=== PATIENT | female | born 1990 | race Caucasian/White ===

== ENCOUNTER → 2017-09-03 | Outpatient (CLI) | payer OTHER ==
[~2017-09-03] MED LIST: GADOBENATE DIMEGLUMINE 0 ML IV ONE
--- NOTE | 2017-09-03 11:02 | Diagnostic Imaging Report ---
ADDENDUM #1 In addition to the findings described in the body and impression of the report, there is also mild volume loss with possible mild encephalomalacia in the left inferior cerebellum beneath the suboccipital craniectomy. Signed by: Dr. Bassam Hennessy M.D. on 09/03/2017 11:32 AM ORIGINAL REPORT Exam: Brain MRI without IV contrast History: Dizziness, paresthesias Comparison studies: None Technique: Sagittal and axial T2 FS, axial DWI, axial T2*GRE, axial T1 FLAIR and axial coronal T2 FLAIR. Intravenous contrast: None Findings: Scalp and bone marrow: Surgical changes of previous suboccipital craniectomy and posterior C1 arch resection for Chiari malformation. Brain sulci: Appropriate for age. Ventricles: Normal in size. No hydrocephalus. Extra axial spaces: No mass, no fluid collection. Parenchyma: No abnormal signal intensities. No masses, hemorrhage, acute or chronic vascular insults. Suprasellar region: No abnormalities. Craniocervical junction: Cerebellar tonsils lie just below the expected location of the foramen magnum compatible with a Chiari one malformation which has been decompressed by suboccipital craniectomy and posterior C1 arch resection. Vessels: Normal flow-voids in the arteries and sinuses. Incidental findings: Small right max a sinus retention cyst. IMPRESSION: 1. Surgically decompressed Chiari I malformation. 2. No other intracranial abnormalities. Signed by: Dr. Bassam Hennessy M.D. on 09/03/2017 10:58 AM
--- NOTE | 2017-09-03 11:32 | Diagnostic Imaging Report ---
Exam: Cervical spine MRI without IV contrast History: Paresthesias,Chiari malformation. Comparison studies: None Technique: Sagittal T1, T2 and IR, axial T2 and axial gradient echo Intravenous contrast: None Findings: Alignment: Straightened cervical curvature may be positional. Cervicomedullary junction: The cerebellar tonsils lie just below the expected location of the foramen magnum consistent with history of Chiari malformation. The cerebellar tonsils have been surgically decompressed by suboccipital craniectomy and posterior C1 arch resection. Soft tissues: No T2 hyperintense inflammatory changes. Spinal cord: Normal in size and signal from the foramen magnum through T1. Vertebrae: No fractures, infection or neoplasm. Degenerative changes: Small C4-C5 disc bulge indents the thecal sac without significant canal stenosis. Patent foramina. No focal disc herniation. IMPRESSION: 1. No cord syrinx or other cord signal abnormalities. 2. Small C4-C5 disc bulge. No focal disc herniation, canal stenosis or nerve root impingement. 3. Surgically decompressed Chiari one malformation. Signed by: Dr. Bassam Hennessy M.D. on 09/03/2017 11:28 AM
== END ==
LOC: MRI 08-29 15:21
PROVIDERS: ATTEND Psychiatry & Neurology Neurology
DX: Q07.00 Arnold-Chiari syndrome without spina bifida or hydrocephalus (principal); R51 Headache; R20.2 Paresthesia of skin; R42 Dizziness and giddiness
CPT/HCPCS: 70551; 72141; 81025